=== PATIENT | male | born 1970 | race African-American/Black ===

== ENCOUNTER 2021-07-13 20:36 | Emergency (ER) | payer MEDICAID, OTHER ==
[~2021-07-13] VITALS: Ht 165.1 cm; Wt 127.0 kg
[2021-07-13] MEDS ORDERED: ASPirin 325 MG TAB PO ONE (23:00)
[2021-07-14] MEDS ORDERED: AMLO-489 PO (01:25)
[2021-07-14] MEDS ORDERED: ONDANSETRON HCL 4 MG/2 ML VIAL IV ONE (01:45)
[2021-07-14 02:09] LABS: Basophils # (auto) 0 10 ^3/uL (0-0.2); Basophils % (auto) 0.6 % (0.0-2.0); Eosinophils # (auto) 0.1 10 ^3/uL (0-0.8); Eosinophils % (auto) 0.9 % (0.0-7.0); Hematocrit 42.9 % (41.0-53.0); Hemoglobin 14.7 g/dL (13.5-17.5); Lymphocytes # (auto) 2.7 10 ^3/uL (0.4-5.4); Lymphocytes % (auto) 35.3 % (10.0-50.0); Mean Corpuscular Hemoglobin 31.6 pg (28.0-32.0); Mean Corpuscular Hgb Conc. 34.3 g/dL (32.0-36.0); Mean Corpuscular Volume 92.4 fL (80.0-100.0); Monocytes # (auto) 0.7 10 ^3/uL (0-1.3); Monocytes % (auto) 8.6 % (0.0-12.0); Neutrophils # (auto) 4.2 10 ^3/uL (1.6-8.6); Neutrophils % (auto) 54.6 % (37.0-80.0); Nucleated Red Blood Cells % 0.1 %; Red Blood Cells 4.65 10^6/uL (4.5-5.90); White Blood Cell 7.7 10^3/uL (4.4-10.8)
[2021-07-14 02:17] LABS: INR 1.07 (0.9-1.15)
[2021-07-14 02:25] LABS: Albumin 3.9 g/dL (3.4-5.0); Potassium 3.9 mmol/L (3.5-5.1)
[2021-07-14 02:29] LABS: Bilirubin, Total 0.4 mg/dL (0.2-1.0); Total Protein 7.8 g/dL (6.4-8.2)
[2021-07-14] MEDS ORDERED: METOPROLOL TARTRATE 50 MG TAB PO ONE (02:30)
[2021-07-14 09:29] VITALS: BP 159/117
== END 2021-07-14 09:31 | disposition home or self-care (01) ==
LOC: ER 20:43 → EDUNIT# 20:43 → ER 07-14 09:31
DX: I10 Essential (primary) hypertension (principal); Z20.822 Contact with and (suspected) exposure to COVID-19
CPT/HCPCS: 36415; 70450; 71046; 80053; 84484; 85025; 85610; 87426; 93005; 96374; 99285; J2405

== ENCOUNTER → 2021-07-13 20:43 | Emergency (ER) | payer MEDICAID ==
[~2021-07-13 20:43] MED LIST: AMLO-489 PO
== END | disposition left against medical advice (07) ==
LOC: ER 20:43
DX: K59.00 Constipation, unspecified (principal); Z53.21 Procedure and treatment not carried out due to patient leaving prior to being seen by health care provider